=== PATIENT | male | born 1975 | race Caucasian/White ===

== ENCOUNTER 2022-06-16 13:53 | Emergency (ER) | payer OTHER ==
[~2022-06-16] VITALS: Ht 185.4 cm; Wt 83.9 kg
== END 2022-06-16 15:32 | disposition home or self-care (01) ==
LOC: ER 13:53
DX: T43.651A Poisoning by methamphetamines accidental (unintentional), initial encounter (principal); T40.411A Poisoning by fentanyl or fentanyl analogs, accidental (unintentional), initial encounter; F17.210 Nicotine dependence, cigarettes, uncomplicated; F19.10 Other psychoactive substance abuse, uncomplicated
CPT/HCPCS: 93005; 93010